=== PATIENT | female | born 2000 | race Caucasian/White ===

== ENCOUNTER 2020-07-17 17:17 | Outpatient (CLI) | payer OTHER | END 2020-07-17 17:18 | disposition home or self-care (01) | LOC: COV 17:17 | PROVIDERS: ATTEND Family Medicine | DX: R05 Cough (principal); R53.83 Other fatigue; J02.9 Acute pharyngitis, unspecified; R09.81 Nasal congestion; Z20.828 Contact with and (suspected) exposure to other viral communicable diseases ==

== ENCOUNTER 2021-06-19 14:45 | Outpatient (CLI) | payer OTHER | END 2021-06-19 14:46 | disposition home or self-care (01) | LOC: COV 14:45 | PROVIDERS: ATTEND Family Medicine | DX: U07.1 COVID-19 (principal) ==